=== PATIENT | male | born 1980 | race Caucasian/White ===

== ENCOUNTER 2017-03-16 00:26 | Emergency (ER) | payer OTHER ==
[~2017-03-16] VITALS: Ht 180.3 cm; Wt 102.3 kg
[~2017-03-16 00:26] MED LIST: ATN25T PO; ATN50T PO; TRAM-25 PO; [UNRECOGNIZED DRUG - REMARK]
--- OUTSIDE RECORDS SUMMARY | 2017-03-16 00:30 | XMS REPORT | Continuity of Care Document ---
Author Author [facility] Organization [facility] Address Unknown Phone Unavailable Care Team Providers Care [place] Name Role Phone Ibrahima Collado MD PCP [phone] Insurance Providers Payer Name Policy Number Subscriber Name Relationship [employer] [id number] Seng Soto 19 Self / Same As Patient Chief Complaint and Reason for Visit Chief Complaint Pain Reason for Visit Left ankle pain Problems Medical Problems Problem Onset Date Status Foot pain 06/01/2013 Resolved Left ankle pain Unknown Active Medications Medication Dose Route Sig Days/Qty Instructions Order Date Discontinued Date Status Atenolol (Tenormin) 25 Mg ORAL DAILY 05/28/15 Active [unknown gout meds] 05/28/15 Active Tramadol Hcl 50 Mg ORAL THREE TIMES A DAY For pain 14 Qty 05/28/15 Active Social History No social history. Hospital Discharge Instructions No hospital discharge instructions. Plan of Care Discharge Date 05/28/15 1:22pm Disposition 01 HOME OR SELF-CARE Instructions/Education Provided Ankle Sprain (ED) Prescriptions See Medications Section Referrals Ibrahima Collado MD Additional Instructions/Education It is unclear exactly why the ankle is hurting, it is unlikely Gout or Tendonitis due to failure to improve in symptoms with appropriate treatment. At this time would recommend seeing PCP and consider a xray. Get ankle support orthotic. Some of your test results may not be complete prior to your leaving the Emergency Department. The Emergency Department is not authorized to give test results over the phone. Please contact the doctor's office listed in this packet of information for your final results. Follow up with your primary care physician or return to the Emergency Department for worsening or worrisome symptoms. * Emergency Department phone number: [phone], x [phone]* MEDICAL RECORD If you need copies of your X-rays, call [phone]. If you need copies of your medical record, including lab results, a signed authorization for release of records will be required. A telephone call for release of Health Information is not allowed. BILLING Billing can sometimes be confusing and frustrating. To help avoid confusion in the future, please take a moment to acquaint yourself with the billing parties for services. SERVICE BILLING DEMOCRAT Emergency Room Services [facility] Patients will receive bills for services from the appropriate provider. If you have any questions about your [facility] bill, our staff will be happy to assist you. Please call [phone], and ask for the billing department. THANK YOU for choosing [facility] as your emergency care provider! Functional Status No functional status results. Allergies, Adverse Reactions, Alerts Allergen Type Severity Reaction Status Last Updated PCN Allergy Active 05/30/13 Immunizations No immunization records. Vital Signs Acute Vital Signs Vital Response Date/Time Temperature (Fahrenheit) 97.3 Pulse 81 bpm Respirations 20 Height 5 ft 11 in Weight 211 lb Body Mass Index 29.0 kg/m^2 Results Test Source Date Result Interp. Ref. Range Comments Alanine Aminotransferase (ALT/SGPT) May 30, 2013 5:01pm 25 U/L L 30-65 Albumin May 30, 2013 5:01pm 4.5 G/DL N 3.4-5.0 Albumin/Globulin Ratio May 30, 2013 5:01pm 2.9 H 1.1-1.8 Alkaline Phosphatase May 30, 2013 5:01pm 54 U/L N 38-126 Aspartate Amino Transf (AST/SGOT) May 30, 2013 5:01pm 19 U/L N 15-37 BUN/Creatinine Ratio May 30, 2013 5:01pm 18 N 10-20 Basophils # (Auto) May 30, 2013 5:01pm 0.0 10^3/uL Basophils (%) (Auto) May 30, 2013 5:01pm 0 % N 0-2 Blood Urea Nitrogen May 30, 2013 5:01pm 18 MG/DL N 7-18 C-Reactive Protein May 30, 2013 5:01pm < 0.50 MG/DL 0.0-0.9 Calcium Level May 30, 2013 5:01pm 9.5 MG/DL N 8.8-10.8 Calculated Osmolality May 30, 2013 5:01pm 276 MOSM/L L 280-300 Carbon Dioxide Level May 30, 2013 5:01pm 28 MMOL/L N 22-29 Chloride Level May 30, 2013 5:01pm 107 MMOL/L N 98-108 Creatinine May 30, 2013 5:01pm 1.00 mg/dL N 0.8-1.5 Eosinophils # (Auto) May 30, 2013 5:01pm 0.1 10^3/uL Eosinophils (%) (Auto) May 30, 2013 5:01pm 1 % N 0-4 Glucose Level May 30, 2013 5:01pm 99 MG/DL N 70-110 Hematocrit May 30, 2013 5:01pm 46.50 % N 39.00-50.00 Hemoglobin May 30, 2013 5:01pm 16.0 g/dL N 13.5-17.0 Lymphocytes # (Auto) May 30, 2013 5:01pm 1.4 X 10^3 Lymphocytes (%) (Auto) May 30, 2013 5:01pm 14 % L 20-46 Mean Corpuscular Hemoglobin May 30, 2013 5:01pm 29.4 PG N 26.0-34.0 Mean Corpuscular Hemoglobin Concent May 30, 2013 5:01pm 34.4 g/dL N 31.0-37.0 Mean Corpuscular Volume May 30, 2013 5:01pm 85 FL N 80-100 Mean Platelet Volume May 30, 2013 5:01pm 9.0 FL N 6.0-9.5 Monocytes # (Auto) May 30, 2013 5:01pm 0.6 X 10^3 Monocytes (%) (Auto) May 30, 2013 5:01pm 7 % N 3-11 Neutrophils # (Auto) May 30, 2013 5:01pm 7.7 X 10^3 Neutrophils (%) (Auto) May 30, 2013 5:01pm 78 % H 51-67 Platelet Count May 30, 2013 5:01pm 223 10^3/uL N 150-450 Potassium Level May 30, 2013 5:01pm 4.4 MMOL/L N 3.5-5.1 Red Blood Count May 30, 2013 5:01pm 5.45 10^6/uL N 4.50-5.50 Red Cell Distribution Width May 30, 2013 5:01pm 12.1 % N 11.8-15.6 Sodium Level May 30, 2013 5:01pm 142 MMOL/L N 135-150 Total Bilirubin May 30, 2013 5:01pm 0.7 MG/DL N 0.1-1.0 Total Protein May 30, 2013 5:01pm 7.4 G/DL N 6.4-8.5 Uric Acid May 30, 2013 5:01pm 7.1 MG/DL N 3.8-7.1 White Blood Count May 30, 2013 5:01pm 9.83 10^3/uL N 4.0-11.0 Estimat Glomerular Filtration Rate May 30, 2013 5:01pm 105.5 Estimated GFR (Non- May 30, 2013 5:01pm 87.2 Calcium/Ionized Calcium Ratio May 30, 2013 5:01pm 4.00 mg/dL Procedures No known history of procedures. Encounters Encounter Location Date/Time Departed Emergency Room [facility] 05/28/15 12:25pm Recent Diagnosis
--- OUTSIDE RECORDS SUMMARY | 2017-03-16 00:32 | XMS REPORT | Continuity of Care Document ---
Author Author [facility] Organization [facility] Address Unknown Phone Unavailable Care Team Providers Care Manager Financial Reporting Name Role Phone Ibrahima Collado MD PCP [phone] Insurance Providers Payer Name Policy Number Subscriber Name Relationship [employer] [id number] Seng Soto 19 Self / Same As [...] worrisome symptoms. * Emergency Department phone number: [phone], x [phone]* MEDICAL RECORD If you need copies of your X-rays, call [phone] x [phone]. If you need copies of [...] the billing parties for services. SERVICE BILLING CONSTITUTION PARTY Emergency Room Services [facility] Patients will receive bills for services from the appropriate provider. If you have any questions about your [facility] bill, our staff will be happy to assist you. Please call [phone], and ask for the billing department. THANK YOU for choosing [facility] as your emergency care provider! Functional Status [...] Encounters Encounter Location Date/Time Departed Emergency Room [facility] 05/28/15 12:25pm Recent Diagnosis
[2017-03-16] MEDS ORDERED: OMEP20TA PO (00:50)
[2017-03-16] MEDS ORDERED: ED- AZITHROMYCIN 250 MG (ZITHROMAX) 3 TABLETS/BTL PO ONE (01:00)
[2017-03-16] MEDS ORDERED: AZTH250C PO (01:01)
[2017-03-16 01:11] VITALS: BP 160/97
== END 2017-03-16 01:11 | disposition home or self-care (01) ==
LOC: ED 00:28
DX: R55 Syncope and collapse (principal); G47.30 Sleep apnea, unspecified; R05 Cough; F17.200 Nicotine dependence, unspecified, uncomplicated
CPT/HCPCS: 99282